=== PATIENT | female | born 1960 | race Caucasian/White ===

== ENCOUNTER 2016-10-22 17:17 | Emergency (ER) | payer OTHER ==
[2016-10-22 17:34] VITALS: RESP 18; TEMP 97.9
--- NOTE | 2016-10-22 17:50 | DX ---
PA and lateral chest. October 22, 2016. Clinical History: Persistent cough Comparison Study: December 11, 2010. Findings: The lungs are clear. No pleural disease identified. Heart size is normal. Visualized osseous structures appear normal. Impression: Normal chest.
--- NOTE | 2016-10-22 17:57 | UCPHY ---
H & P Time Seen by Provider: 10/22/16 17:48 Patient Type: Established HPI/ROS: HPI: 55-year-old female presents to urgent care with chief concern at chest tingling and right-sided pleuritic 4/10 chest pain that onset yesterday. Reports associated intermittently productive cough times 3-4 weeks. Reports subjective fever. Denies dizziness, shortness of breath, abdominal pain, nausea , vomiting, diarrhea, back pain, calf pain or swelling, recent long car or plane travel. Type 2 diabetic with a history of hypertension, hypothyroidism, reactive airway disease. ROS:10 point review of systems is negative other than as stated in HPI Past Medical/Surgical History: See HPI Social History: Smoking Status: Never smoked Physical Exam: Vital reviewed by me General: Awake, alert, calm, cooperative. No acute distress. Head: Normalocephalic. Atraumatic. EENT: PERRLA. EOMI. No pallor or injection. Anicteric. No nystagmus. No injection. TMs intact bilaterally with normal landmarks. Minimal rhinorrhea with mildly erythematous turbinates present. Oropharynx without redness, exudates, or lesions. Tonsils 2+ bilaterally, no exudates. Neck: Supple, nontender. No lymphadenopathy. Full range of motion. No meningismus. Respiratory: Breathing unlabored. Breath sounds equal bilaterally and clear to auscultation. No adventitious sounds. CV: Chest nontender, atraumatic. Heart rate regular. No murmur, distal pulses 2+ bilaterally. Brisk cap refill all extremities. GI: Abdomen soft, nontender. Bowel sounds normoactive and positive x4 quadrants. Neuro: Alert. Oriented x 3. Speech clear. Sensation intact all extremities. Skin: Skin warm, dry, intact. No rashes, abrasions, or lacerations. Skin turgor normal. Extremities: Full range of motion in all 4 extremities. Strength 5+ all extremities. No calf pain or swelling. Negative Homans bilaterally. Constitutional: Initial Vital Signs Temperature (C) 36.6 C 10/22/16 17:29 Heart Rate 99 10/22/16 17:29 Respiratory Rate 18 10/22/16 17:29 Blood Pressure 170/100 H 10/22/16 17:29 O2 Sat (%) 98 10/22/16 17:29 O2 Delivery Mode Room Air Allergies/Adverse Reactions: caffeine [From Norgesic] Allergy (Intermediate, Verified 10/01/16 11:24) Hives diazepam [From Valium] Allergy (Intermediate, Verified 10/01/16 11:24) Hives orphenadrine citrate [From Norgesic] Allergy (Intermediate, Verified 10/01/16 11 :24) Hives iodine Allergy (Verified 10/01/16 11:24) Hives shellfish derived Allergy (Verified 10/01/16 11:24) Hives Home Medications: Medication Instructions Recorded COZAAR 06/27/10 METFORMIN HCL 06/27/10 VITAMIN D3 06/27/10 CRESTOR 12/11/10 JANUVIA 12/11/10 SYNTHROID 12/11/10 Albuterol Hfa Anes Only [Proair 2 puffs IH QID PRN #1 mdi 10/01/16 Hfa Anes Only] HYDROcodone/HOMATROPINE HYCODA 1 - 2 tsp PO HS PRN #100 ml 10/01/16 [Hycodan Syrup (*)] HYDROcodone/HOMATROPINE HYCODA 5 - 10 ml PO HS PRN #60 ml 10/22/16 [Hycodan Syrup (*)] Medical Decision Making ED Course/Re-evaluation: 55-year-old female presents to urgent care with right-sided pleuritic 4/10 chest pain and chest tingling that onset yesterday associated with a intermittently productive cough times almost 1 month. Chest x-ray is negative. Flu swab negative. She is afebrile. Oxygen saturation 98% on room air, heart rate 99. Blood pressure 170/100. EKG, blood work, pending. 1814: EKG shows a sinus rhythm, rate 87, left axis deviation, normal intervals , no evidence of acute ischemia. No change from previous EKG December 2010. White count 6990. Metabolic panel significant for glucose 281, otherwise unremarkable. D-dimer 0.48. Troponin negative Will have patient follow up tomorrow with primary care for recheck Differential Diagnosis: Differential diagnosis includes but is not limited to viral upper respiratory infection, reactive airway disease, influenza, bronchitis, pneumonia, acute coronary syndrome, pulmonary embolism - Data Points Laboratory Results: Laboratory Results 10/22/16 18:05 10/22/16 18:05 10/22/16 10/22/16 18:05 17:40 WBC 6.99 10^3/uL (3.80-9.50) RBC 5.32 10^6/uL (4.18-5.33) Hgb 13.1 g/dL (12.6-16.3) Hct 39.8 % (38.0-47.0) MCV 74.8 L fL (81.5-99.8) MCH 24.6 L pg (27.9-34.1) MCHC 32.9 g/dL (32.4-36.7) RDW 17.2 H % (11.5-15.2) Plt Count 274 10^3/uL (150-400) MPV 10.3 fL (8.7-11.7) Neut % (Auto) 51.9 % (39.3-74.2) Lymph % (Auto) 31.9 % (15.0-45.0) [place] % (Auto) 8.7 % (4.5-13.0) Eos % (Auto) 6.4 % (0.6-7.6) Baso % (Auto) 0.7 % (0.3-1.7) Nucleat RBC Rel Count 0.0 % (0.0-0.2) Absolute Neuts (auto) 3.62 10^3/uL (1.70-6.50) Absolute Lymphs (auto) 2.23 10^3/uL (1.00-3.00) Absolute Monos (auto) 0.61 10^3/uL (0.30-0.80) Absolute Eos (auto) 0.45 H 10^3/uL (0.03-0.40) Absolute Basos (auto) 0.05 10^3/uL (0.02-0.10) Absolute Nucleated RBC 0.00 10^3/uL (0-0.01) Immature Gran % 0.4 % (0.0-1.1) Immature Gran # 0.03 10^3/uL (0.00-0.10) D-Dimer 0.48 ug/mLFEU (0.00-0.50) Sodium 137 mEq/L (134-144) Potassium 4.0 mEq/L (3.5-5.2) Chloride 100 mEq/L (97-110) Carbon Dioxide 22 mEq/l (22-31) Anion Gap 15 mEq/L (8-16) BUN 11 mg/dL (7-23) Creatinine 0.6 mg/dL (0.6-1.0) Estimated GFR > 60 Glucose 281 H mg/dL (70-100) Calcium 9.7 mg/dL (8.5-10.4) Troponin I < 0.012 ng/mL (0-0.034) Influenza Typ A,B (DFA) NEGATIVE FOR FLU (NEGATIVE) Departure - Departure Disposition: Home, Routine, Self-Care Clinical Impression: Chronic cough, Chest pain in adult Condition: Good Instructions: Chronic Cough (ED), Chest Pain (ED) Additional Instructions: Plan: Use your albuterol inhaler 2 puffs every 4-6 hours for shortness of breath, wheezing. May use Hycodan liquid at bedtime as prescribed for difficulty sleeping due to cough--never drink or drive while taking Follow up with primary care in the next 1-2 days for recheck without fail-When you call to schedule appointment, please let the office know you are an "ER follow up" appointment" Referrals: Amber Roe, MARKET RESEARCH EXECUTIVE [Primary Care Provider] - As per Instructions Prescriptions: HYDROcodone/HOMATROPINE HYCODA [Hycodan Syrup (*)] 5 - 10 ml PO HS PRN #60 ml PRN Reason: severe cough preventing sleep - PQRS PQRS Measurement: Not applicable
[2016-10-22 18:11] LABS: % IMMATURE GRANULYOCYTES 0.4 % (0.0-1.1); ABSOLUTE IMMATURE GRANULOCYTES 0.03 10^3/uL (0.00-0.10); ADD DIFF? NO; ADD MORPH? NO; ADD SCAN? NO; ATYPICAL LYMPHOCYTE FLAG 0 (0-99); FRAGMENT RBC FLAG 20 (0-99); HEMATOCRIT 39.8 % (38.0-47.0); HEMOGLOBIN 13.1 g/dL (12.6-16.3); LEFT SHIFT FLG 0 (0-99); LIPEMIA HEMOLYSIS FLAG 80 (0-99); MEAN CELL HEMOGLOBIN 24.6 pg (27.9-34.1); MEAN CELL HEMOGLOBIN CONCENTR. 32.9 g/dL (32.4-36.7); MEAN CELL VOLUME 74.8 fL (81.5-99.8); MEAN PLATELET VOLUME 10.3 fL (8.7-11.7); PLATELET CLUMPS FLAG 10 (0-99); PLATELET COUNT 274 10^3/uL (150-400); RED BLOOD CELL COUNT 5.32 10^6/uL (4.18-5.33); RED CELL DISTRIBUTION WIDTH 17.2 % (11.5-15.2)
--- NOTE | 2016-10-22 18:19 | CPEKG ---
Heart Rate: 87 RR Interval: 690 P-R Interval: 148 QRSD Interval: 84 QT Interval: 380 QTC Interval: 457 P [place]: 49 QRS [place]: -33 T Wave [place]: -14 EKG Severity - BORDERLINE ECG - EKG Impression: SINUS RHYTHM EKG Impression: LEFT AXIS DEVIATION EKG Impression: BORDERLINE T ABNORMALITIES, DIFFUSE LEADS Electronically Signed By: Shadi Gardiner 25-Oct-2016 13:10:35
[2016-10-22 18:23] LABS: ANION GAP 15 mEq/L (8-16); CALCIUM 9.7 mg/dL (8.5-10.4); CARBON DIOXIDE 22 mEq/l (22-31); CHLORIDE 100 mEq/L (97-110); CREATININE 0.6 mg/dL (0.6-1.0); GLOMERULAR FILTRATION RATE > 60; GLUCOSE 281 mg/dL (70-100); SODIUM 137 mEq/L (134-144)
[2016-10-22 18:36] LABS: TROPONIN I < 0.012 ng/mL (0-0.034)
[2016-10-22 19:03] VITALS: BP 190/100; PULSE 88; O2SAT 95
== END 2016-10-22 19:00 | disposition home or self-care (01) ==
LOC: CED 17:17
DX: R07.9 Chest pain, unspecified (principal); R05 Cough
CPT/HCPCS: 71020-PO; 80048-PO; 84484-PO; 85025-PO; 85378-PO; 87400-PO; 93010-PO; 99215-PO; G0463-PO

== ENCOUNTER 2016-10-24 07:33 | Emergency (ER) | payer OTHER ==
[2016-10-24] MEDS ORDERED: IPRATROPIUM/ALBUTEROL 3 ML DEYVIAL IH ONE (07:40)
--- NOTE | 2016-10-24 07:54 | UCPHY ---
H & P Time Seen by Provider: 10/24/16 07:44 Patient Type: Established HPI/ROS: 55-year-old female presents complaining of cough and shortness of breath with wheezing. She has a history of asthma and was seen here on October 22 for right-sided pleuritic pain. Review of systems General no fever no chills no weakness HEENT no eye pain no eye discharge. No eye redness, no sore throat Respiratory positive cough, no shortness of breath Cardiac no chest pain, no peripheral edema GI no abdominal pain, no diarrhea, no constipation, no nausea, no vomiting no flank pain, no hematuria, no dysuria Musculoskeletal no myalgias, no joint pain Heme no easy bruising, no easy bleeding Endo no polyuria, no polydipsia Skin no rashes, no pruritus Neuro no syncope, no dizziness, no headaches Psych is no suicidal ideation, no homicidal ideation Past Medical/Surgical History: Asthma Obesity Hri-ymnruti-zorxhweur diabetes Hyperlipidemia htn Social History: No alcohol, no drugs Smoking Status: Never smoked Physical Exam: 55-year-old female alert and oriented with cough and wheezing, no acute distress , afebrile HEENT atraumatic normocephalic, extraocular muscles intact, anicteric Oropharynx negative for erythema negative exudate, tolerating her own secretions Neck supple no meningismus Lungs diffuse wheezing Heart regular rate and rhythm without murmur rub or gallop Abdomen obese, normoactive bowel sounds soft nontender Back no CVA tenderness, no step-offs, no spinal tenderness Extremities no cyanosis clubbing or edema Neuro alert and oriented, no focal deficits Constitutional: Initial Vital Signs Temperature (C) 36.8 C 10/24/16 07:44 Heart Rate 96 10/24/16 07:44 Respiratory Rate 16 10/24/16 07:44 Blood Pressure 155/103 H 10/24/16 07:44 O2 Sat (%) 92 10/24/16 07:44 O2 Delivery Mode Room Air Allergies/Adverse Reactions: caffeine [From Norgesic] Allergy (Intermediate, Verified 10/24/16 07:41) Hives diazepam [From Valium] Allergy (Intermediate, Verified 10/24/16 07:41) Hives orphenadrine citrate [From Norgesic] Allergy (Intermediate, Verified 10/24/16 07 :41) Hives iodine Allergy (Verified 10/24/16 07:41) Hives shellfish derived Allergy (Verified 10/24/16 07:41) Hives Home Medications: Medication Instructions Recorded COZAAR 06/27/10 METFORMIN HCL 06/27/10 VITAMIN D3 06/27/10 CRESTOR 12/11/10 JANUVIA 12/11/10 SYNTHROID 12/11/10 Albuterol Hfa Anes Only [Proair 2 puffs IH QID PRN #1 mdi 10/01/16 Hfa Anes Only] HYDROcodone/HOMATROPINE HYCODA 1 - 2 tsp PO HS PRN #100 ml 10/01/16 [Hycodan Syrup (*)] HYDROcodone/HOMATROPINE HYCODA 5 - 10 ml PO HS PRN #60 ml 10/22/16 [Hycodan Syrup (*)] AZITHROMYCIN [Z-PACK] 250 mg PO DAILY #6 tab 10/24/16 Medical Decision Making ED Course/Re-evaluation: Patient seen and evaluated for asthma exacerbation. Given DuoNeb with marked relief Next given 10 mg albuterol neb Impression Asthma exacerbation Bronchitis Plan Symbicort twice daily Albuterol inhaler A Zithromax No steroids given secondary to patient's diabetes - Data Points Medications Given: Discontinued Medications Albuterol (Proventil Neb) 12 ml IH CONT ONE Stop: 10/24/16 08:25 Last Admin: 10/24/16 09:35 Dose: 12 ml Albuterol/Ipratropium (Duoneb) 3 ml IH EDNOW ONE Stop: 10/24/16 07:41 Last Admin: 10/24/16 07:48 Dose: 3 ml Departure - Departure Disposition: Home, Routine, Self-Care Clinical Impression: Asthma attack, Acute bronchitis Condition: Good Instructions: Acute Bronchitis (ED), Asthma (ED) Additional Instructions: Take her Symbicort 2 puffs twice a day Your albuterol or Ventolin inhaler is 2 puffs every 3-4 hours Referrals: Amber Roe WEED SCIENCE RESEARCH TECHNICIAN [Primary Care Provider] - As per Instructions Prescriptions: AZITHROMYCIN [Z-PACK] 250 mg PO DAILY #6 tab - PQRS PQRS Measurement: na
[2016-10-24] MEDS ORDERED: ALBUTEROL 3 ML DEYVIAL IH ONE (08:24)
[2016-10-24 09:52] VITALS: BP 139/92; PULSE 109; RESP 18; TEMP 98.4; O2SAT 90
== END 2016-10-24 09:59 | disposition home or self-care (01) ==
LOC: CED 07:33
DX: J20.9 Acute bronchitis, unspecified (principal); J45.909 Unspecified asthma, uncomplicated; E66.9 Obesity, unspecified; E11.9 Type 2 diabetes mellitus without complications; E78.5 Hyperlipidemia, unspecified
CPT/HCPCS: 99214-PO; G0463-PO

== ENCOUNTER 2016-10-30 22:26 | Emergency (ER) | payer OTHER ==
[2016-10-30 22:43] VITALS: BP 162/108; PULSE 93; RESP 18; TEMP 98.2; O2SAT 95
[2016-10-30] MEDS ORDERED: HYDROCODONE/APAP 5/325 TAB PO ONE (22:45)
--- NOTE | 2016-10-30 22:47 | UCPHY ---
H & P Time Seen by Provider: 10/30/16 22:42 Patient Type: Established HPI/ROS: CHIEF COMPLAINT: Cough, cannot sleep HPI: The patient is a 55-year-old female with a history of asthma and diabetes. This is her 3rd visit to the Urgent Care within the last month related to cough. She has been prescribed azithromycin as well as Hycodan syrup several times. She has also seen her primary physician apparently does not agree with her treatment in the Urgent Care. Patient states she is out of cough medicine and states that she remains unable to sleep secondary to severe coughing fits. She denies chest pain. She states that her asthma has gotten significantly better but still complains of mild wheeze. She denies fever or chest pain. REVIEW OF SYSTEMS: Aside from elements discussed in the HPI, a comprehensive 10-point review of systems was reviewed and is negative. PMH: Asthma, diabetes SOCIAL HISTORY: . Denies drug abuse. FAMILY HISTORY: Reviewed, noncontributory PHYSICAL EXAM: General:Patient is alert, in no acute distress. ENT:Eyes are normal to inspection. ENT inspection normal. Neck: Normal inspection. Full range of motion. Respiratory:No respiratory distress. Mild to moderate expiratory wheezes noted bilaterally. No rhonchi. Cardiovascular: Regular rate and rhythm. Strong peripheral pulses. Normal cap refill. Abdomen:The abdomen is nontender to palpation. There are no peritoneal signs. There are normal bowel sounds. Back: Normal to inspection. No tenderness to palpation. Skin: Normal color. No rash. Warm and dry. Extremities: Normal appearance. Full range of motion. Neuro: Oriented x3. Normal motor function. Normal sensory function. Smoking Status: Former smoker Constitutional: Initial Vital Signs Temperature (C) 36.8 C 10/30/16 22:37 Heart Rate 93 10/30/16 22:37 Respiratory Rate 18 10/30/16 22:37 Blood Pressure 162/108 H 10/30/16 22:37 O2 Sat (%) 95 10/30/16 22:37 O2 Delivery Mode Room Air Allergies/Adverse Reactions: caffeine [From Norgesic] Allergy (Intermediate, Verified 10/30/16 22:43) Hives diazepam [From Valium] Allergy (Intermediate, Verified 10/30/16 22:43) Hives orphenadrine citrate [From Norgesic] Allergy (Intermediate, Verified 10/30/16 22 :43) Hives iodine Allergy (Verified 10/30/16 22:43) Hives shellfish derived Allergy (Verified 10/30/16 22:43) Hives Home Medications: Medication Instructions Recorded COZAAR 06/27/10 METFORMIN HCL 06/27/10 VITAMIN D3 06/27/10 CRESTOR 12/11/10 JANUVIA 12/11/10 SYNTHROID 12/11/10 HYDROcodone/HOMATROPINE HYCODA 1 - 2 tsp PO HS PRN #100 ml 10/01/16 [Hycodan Syrup (*)] HYDROcodone/HOMATROPINE HYCODA 5 - 10 ml PO HS PRN #60 ml 10/22/16 [Hycodan Syrup (*)] Benzonatate [Tessalon Pearles (RX)] 100 mg PO TID PRN #15 cap 10/30/16 HYDROcodone/HOMATROPINE HYCODA 1 tsp PO Q4-6PRN PRN #80 ml 10/30/16 [Hycodan Syrup (RX)] Medical Decision Making ED Course/Re-evaluation: This patient arrives approximately 20 minutes before the urgent care is closing. Had extensive discussion with her regarding the fact that we will be unable to perform a full evaluation of her prolonged symptoms nor be able to provide multiple nebulizers. She states that the only reason she is here is to obtain some medicine to help her sleep at night because she cannot sleep given the severity of her cough. We agreed on a plan for short prescription of both Hycodan syrup as well as Tessalon. I have no suspicion that the patient is drug seeking. She is clearly having quite significant coughing fits here. She fully understands that I am unable to rule out any potentially serious cause of her cough here tonight and that she needs to follow up with her primary physician for further testing. She agrees to this plan. She declines transfer to another facility. Her vital signs are normal with the exception of high blood pressure, although this is obtained in the middle of a coughing spasm. Departure - Departure Disposition: Home, Routine, Self-Care Clinical Impression: Cough Condition: Good Instructions: Chronic Cough (ED) Additional Instructions: Follow-up with her primary physician within 72 hours for re-evaluation. Return to the emergency department for chest pain, shortness of breath, fever or other worsening of condition. As we discussed, we are unable to perform any diagnostics here, and you need further evaluation given the duration of her cough. We also recommend you follow-up with a water quality assistant as soon as possible. Referrals: Amber Roe, LACE AND TEXTILES RESTORER [Primary Care Provider] - As per Instructions Prescriptions: HYDROcodone/HOMATROPINE HYCODA [Hycodan Syrup (RX)] 1 tsp PO Q4-6PRN PRN #80 ml PRN Reason: Cough, Severe Benzonatate [Tessalon Pearles (RX)] 100 mg PO TID PRN #15 cap PRN Reason: Cough, Severe - PQRS PQRS Measurement: 134: Depression screening and followup, PRIME MD-PHQ2 (12 years and older) Over the last 2 weeks, how often have you been bothered by any of the following problems? 1. Feeling down, depressed, or hopeless? 2. Little interest or pleasure in doing things? Patient answered no to both 1 and 2 130: Documentation of medications. Reviewed all patient medications, doses, route and frequency. 226: Do you smoke? No. 51: 18 years old and older with diagnosis of COPD, spirometry performance. Spirometry not performed; equipment not available. Patient has no history of COPD 52: 18 years old and older with COPD and symptoms of COPD or FEV1<60% predicted prescribed a B Agonist. Spirometry not performed; equipment not available.
== END 2016-10-30 22:59 | disposition home or self-care (01) ==
LOC: CED 22:26
DX: R05 Cough (principal); J45.909 Unspecified asthma, uncomplicated; E11.9 Type 2 diabetes mellitus without complications; Z87.891 Personal history of nicotine dependence
CPT/HCPCS: 99214-PO; G0463-PO

== ENCOUNTER 2016-11-01 18:37 | Emergency (ER) | payer OTHER ==
[2016-11-01 18:48] LABS: LEUKOCYTE ESTERASE,URINE 1+ (NEGATIVE); NITRITE,URINE NEGATIVE (NEGATIVE); PH,URINE 5.5 (5.0-7.5)
[2016-11-01 18:49] LABS: COLOR OTHER
[2016-11-01 18:57] LABS: BACTERIA 2+ /hpf (NONE SEEN); MUCUS TRACE /lpf (NONE-1+); RBC,URINE >182 /hpf (0-3)
[2016-11-01 19:13] VITALS: BP 168/103; PULSE 99; RESP 16; TEMP 98.4; O2SAT 95
[2016-11-01] MEDS ORDERED: PHENAZOPYRIDINE HCL 200 MG TAB PO ONE ×2 (19:22→19:55)
[2016-11-01] MEDS ORDERED: CEPHALEXIN 500 MG CAP PO ONE (19:55)
--- NOTE | 2016-11-01 20:16 | UCPHY ---
H & P Time Seen by Provider: 11/01/16 19:49 Patient Type: Established HPI/ROS: This patient complains of hematuria, dysuria, frequency and urgency similar to previous bladder infections. Her symptoms started at 3:30 a.m. the day of presentation. He she notes no exacerbating or alleviating factors. ROS: She denies any high fevers or chills. She reports no flank pain. No vomiting. 5 point ROS is otherwise negative. Past Medical/Surgical History: Obesity Tmr-ponqpzh-eqkwhpixk diabetes Hypothyroid Hypertension Smoking Status: Former smoker Physical Exam: General Appearance: Pleasant obese female Alert, no distress. Eyes: Pupils equal and round no pallor or injection. ENT, Mouth: Mucous membranes moist. Respiratory: No respiratory distress Gastrointestinal: Mild suprapubic tenderness. No guarding or rebound. Back: No CVA tenderness Neurological: Alert Skin: Warm and dry, no rashes. DIFFERENTIAL DIAGNOSIS: After history and physical exam differential diagnosis was considered for cystitis, early pyelonephritis, interstitial cystitis Constitutional: Initial Vital Signs Temperature (C) 36.9 C 11/01/16 19:00 Heart Rate 99 11/01/16 19:00 Respiratory Rate 16 11/01/16 19:00 Blood Pressure 168/103 H 11/01/16 19:00 O2 Sat (%) 95 11/01/16 19:00 O2 Delivery Mode Room Air Allergies/Adverse Reactions: caffeine [From Norgesic] Allergy (Intermediate, Verified 11/01/16 19:06) Hives diazepam [From Valium] Allergy (Intermediate, Verified 11/01/16 19:06) Hives orphenadrine citrate [From Norgesic] Allergy (Intermediate, Verified 11/01/16 19 :06) Hives iodine Allergy (Verified 11/01/16 19:06) Hives shellfish derived Allergy (Verified 11/01/16 19:06) Hives Home Medications: Medication Instructions Recorded METFORMIN HCL 06/27/10 VITAMIN D3 06/27/10 JANUVIA 12/11/10 SYNTHROID 12/11/10 Cephalexin [Keflex (*)] 500 mg PO TID #21 cap 11/01/16 Losartan Potassium 11/01/16 Phenazopyridine HCl [Pyridium] 200 mg PO TID #6 tab 11/01/16 Statin 11/01/16 MDM/Departure - MDM Diagnostics: Urinalysis is consistent with UTI. Medications Given: Discontinued Medications Cephalexin HCl (Keflex) 500 mg PO EDNOW ONE PRN Reason: Protocol Stop: 11/01/16 19:56 Last Admin: 11/01/16 20:12 Dose: 500 mg Phenazopyridine HCl (Pyridium) 200 mg PO EDNOW ONE Stop: 11/01/16 19:23 Last Admin: 11/01/16 19:28 Dose: 200 mg Phenazopyridine HCl (Pyridium) 200 mg PO EDNOW ONE Stop: 11/01/16 19:56 Last Admin: 11/01/16 20:12 Dose: 200 mg ED Course/Re-evaluation: Patient's presentation is consistent with cystitis. I counseled regarding this. - Depart Disposition: Home, Routine, Self-Care Clinical Impression: Acute cystitis, Cystitis Condition: Good Instructions: Urinary Tract Infection in Women (ED) Additional Instructions: Diagnosis: 1. Bladder infection Plan: Drink plenty fluids Peridium for burning Keflex antibiotic Yogurt or probiotic to prevent diarrhea. Return for any significant worsening despite the treatment plan. Prescriptions: Cephalexin [Keflex (*)] 500 mg PO TID #21 cap Phenazopyridine HCl [Pyridium] 200 mg PO TID #6 tab Referrals: Amber Roe, LAB TESTER [Primary Care Provider] - As per Instructions - PQRS PQRS Measurement: NA
== END 2016-11-01 20:13 | disposition home or self-care (01) ==
LOC: CED 18:37
DX: N30.90 Cystitis, unspecified without hematuria (principal); E11.9 Type 2 diabetes mellitus without complications; E66.9 Obesity, unspecified; Z68.37 Body mass index [BMI] 37.0-37.9, adult
CPT/HCPCS: 81003-PO; 81015-PO; 99214-PO; G0463-PO

== ENCOUNTER → 2019-02-15 | Outpatient (CLI) | payer OTHER | LOC: CIMAGING 16:36 | PROVIDERS: ATTEND Family Medicine | DX: M79.642 Pain in left hand (principal); R22.32 Localized swelling, mass and lump, left upper limb | CPT/HCPCS: 73130-PO ==